=== PATIENT | female | born 1970 | race Caucasian/White ===

== ENCOUNTER 2021-09-10 16:17 | Emergency (ER) | payer OTHER, SELFPAY ==
--- NOTE | ~2021-09-10 | XR_ITS ---
EXAMINATION: XR CHEST CLINICAL INFORMATION: COVID. Question pneumonia. COMPARISON: None TECHNIQUE: Frontal view of the chest was obtained. FINDINGS: Airspace opacity in the left midlung consistent with pneumonia. Low lung volumes. There may be a right pleural effusion. No pneumothorax. Normal heart size. XR/XR chest 1V IMPRESSION: Left midlung airspace opacity consistent with pneumonia.
[2021-09-10 17:41] VITALS: BP 104/66; PULSE 96; RESP 20; TEMP 36.9; O2SAT 94; BMI 37.1
--- NOTE | 2021-09-10 21:53 | ED.GENADULT ---
HPI - General Adult General Chief complaint: Fever Stated complaint: +covid on wed, high fever Time Seen by Provider: 09/10/21 16:33 Source: patient Mode of arrival: ambulatory Limitations: no limitations History of Present Illness HPI narrative: Patient presents to ED for positive COVID, fever, chills, chest pain and back pain only when she coughs. Patient denies any pleuritic chest chest pain or shortness of breath on exertion. Patient denies any swelling of legs, calf pain, coughing up blood, or passing out. Patient states she has been positive for COVID for the past 4 days. Patient states taking benzonatate for cough not helping. Related Data Previous Rx's Medication Instructions Recorded amoxicillin 875 mg-potassium 1 tab PO Q12H 7 Days #14 tab 09/10/21 clavulanate 125 mg tablet (Augmentin) azithromycin 250 mg tablet See Rx Instructions .ROUTE 09/10/21 .COMPLEX #6 tab dexamethasone 6 mg tablet 6 mg PO DAILY 10 Days #10 tab 09/10/21 (Decadron) hydrocodone-homatropine 5 mg-1.5 5 ml PO Q6H PRN 3 Days #60 ml 09/10/21 mg/5 mL oral syrup Allergies Allergy/AdvReac Type Severity Reaction Status Date / Time bee pollen [bee stings] AdvReac Anaphylaxis Verified 09/10/21 17:44 Review of Systems Review of Systems: Yes all other systems are reviewed and are negative Constitutional: Constitutional: Reports as per HPI, Reports no additional constitutional complaints, Reports body ache(s), Reports chills, Reports fever(s) and Denies snoring Eyes: Eyes: Reports as per HPI and Reports no additional eye complaints ENT: Reports system reviewed and no additional complaints, except as documented and Reports as per HPI Cardiovascular: Cardiovascular: Reports as per HPI, Reports no additional cardiovascular complaints, Denies dyspnea and Denies dyspnea on exertion Respiratory: Respiratory: Reports cough, Denies hemoptysis, Denies excessive phlegm production, Denies pain on inspiration, Reports pain with cough, Denies dyspnea, Denies dyspnea on exertion, Denies snoring, Denies stridor and Denies wheezing Genitourinary: Genitourinary: Reports no additional female genitourinary complaints and Reports as per HPI Musculoskeletal: Musculoskeletal: Reports no additional musculoskeletal complaints Neurologic: Reports system reviewed and no additional complaints, except as documented and Reports as per HPI Psychiatric: Psychiatric: Reports no additional psychiatric complaints and Reports as per HPI Allergic/Immunologic: Allergic/Immunologic: Denies wheezing PMFSH Social History Social History Advance Directives: No Advance Directives Information Provided: No Physical Exam Vital Signs: Vital Signs: Last Vital Signs Temp 98.5 F 09/10/21 17:41 Pulse 96 09/10/21 17:41 Resp 20 09/10/21 17:41 BP 104/66 09/10/21 17:41 Pulse Ox 94 09/10/21 17:41 Body Mass Index 37.1 Const: General: cooperative, healthy appearing, comfortable, no acute distress, well developed, alert, awake and Physically active Orientation/consciousness: patient oriented x3 HENMT: Head: Yes normal to inspection, Yes No palpable skull fracture present, Yes normocephalic, Yes atraumatic and No abrasion Eyes: General: appearance normal, both eyes and all related structures Neck: Neck: Yes normal visual inspection, Yes full ROM, Yes no lymphadenopathy, Yes no meningeal signs, Yes trachea midline, Yes supple and No tender Chest: Chest palpation & inspection: normal inspection of the chest and normal palpation of entire chest wall Resp: Effort & Inspection: normal respiratory effort and able to speak in complete sentences Auscultation: clear to auscultation bilaterally Cardio: Jugular venous distension: no JVD Heart sounds: S1 normal heart sound present and S2 normal heart sound present GI: Inspection: Yes normal to inspection and No abdominal wall ecchymosis Palpation (GI): Soft to palpation, not firm, nontender, no guarding and not rigid : General: No CVA tenderness and Yes no CVA tenderness Back/Spine/Pelvis: Back: no CVA tenderness, No CVA tenderness and No back tenderness Skin: General skin exam: no rashes or lesions noted and elasticity normal Neuro: General: patient oriented x3, gait normal, no meningeal signs and CN's II-XI intact bilaterally Cranial nerves: Yes CN's II-XII intact bilaterally Extrem: Other: Lower extremities negative for swelling, pitting edema, or calf tenderness Psych: Appearance: grossly normal, well kempt and not disheveled Course Course Course Narrative: Was sent for x-ray. Reevaluation(s) Reevaluation #1: X-ray showed left-sided pneumonia. O2 sat saturation on ambulation 95%. Not suspecting PE. No need for labs. Patient will be discharged with antibiotics and Decadron. Patient educated on monoclonal body and given information to call [facility] monoclonal antibody clinic tomorrow to see if she fits criteria to receive treatment. Time: 10:00 Medical Decision Making MDM Narrative Medical decision making narrative: COVID pneumonia Discharge Plan Discharge Clinical Impression: 2019 novel coronavirus-infected pneumonia (NCIP) Patient Disposition: Home, Self-Care Instructions: Viral Pneumonia (ED), COVID-19 (Coronavirus Disease 2019) (ED) Additional Instructions: Chest x-ray shows left-sided pneumonia. You will be discharged with antibiotic and Decadron. You can call [facility] monoclonal antibody clinic to see if she would qualify for treatment. Please call tomorrow morning. Number is [phone]. Please follow up with PCP. Prescriptions: New dexamethasone [Decadron] 6 mg tablet 6 mg PO DAILY 10 Days Qty: 10 RF: 0 amoxicillin-pot clavulanate [Augmentin] 875-125 mg tablet 1 tab PO Q12H 7 Days Qty: 14 RF: 0 azithromycin 250 mg tablet See Rx Instructions .ROUTE .COMPLEX Qty: 6 RF: 0 hydrocodone-homatropine 5-1.5 mg/5 mL syrup 5 ml PO Q6H PRN (Reason: cough) 3 Days Qty: 60 RF: 0 Stand Alone Forms: Work/School Release Interventions: ED Discharge Assessment Last Done: 09/10/21 22:50 Discharge Date/Time: 09/10/21 22:51 Print Language: Portuguese
== END 2021-09-10 22:51 | disposition home or self-care (01) ==
PROVIDERS: Emergency Provider Internal Medicine; PCP Nurse Practitioner Family
DX: U07.1 COVID-19 (principal); J12.82 Pneumonia due to coronavirus disease 2019; R50.9 Fever, unspecified; M54.50 Low back pain, unspecified; Z79.899 Other long term (current) drug therapy
CPT/HCPCS: 71045; 99283

== ENCOUNTER 2023-12-08 15:01 | Outpatient (AMB) | payer OTHER, SELFPAY ==
--- NOTE | 2023-12-08 15:08 | MHC.OFFWIV ---
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) Intake Note: pt is here today for swollen tonsils started Patient Tobacco Use Status: Never used Tobacco Allergies bee pollen [bee stings] Adverse Reaction (Verified 12/08/23 15:08) Anaphylaxis Do you need a note to return to daycare/school/sports/work: No HPI HPI Comments History of Present Illness Details Patient presents to the walk-in stay with complaints of sore throat for last 4 days Denies known sick contacts Pain with swallowing and reports swollen tonsils Tolerating p.o., denies nausea, vomiting Denies headaches, fevers, chest pain, syncope, dizziness, weakness or difficulty managing secretions PFSH Social History Patient Tobacco Use Status: Never used Tobacco Review of Systems Const All systems reviewed & are unremarkable except as noted in HPI and below Physical Exam Vital Signs: Last Vital Signs Temp 97.8 F 12/08/23 15:11 Pulse 71 12/08/23 15:11 BP 150/100 H 12/08/23 15:11 Pulse Ox 98 12/08/23 15:11 Oxygen Delivery Method Room Air 12/08/23 15:11 BMI result Body Mass Index 37.9 General: awake, alert, oriented. Answers questions appropriately. Fully engaged in examination. Skin: warm, dry, intact HEENT: TMs intact bilaterally, no redness. Posterior pharynx erythematous, uvula erythematous. Moist oral mucosa. Sclera without icterus or injection. Cardiac: External chest normal in appearance. RRR Respiratory: LSCTAB. Abdomen: without gross distension. Neurological: Oriented to person, place, time and situation. Thought process intact. Psychiatric: Appropriate mood and affect. Good judgment and insight. Results AMB Rapid Strep AMB Rapid Strep Negative Last Edit by Samy Pena CMA on 12/08/23 15:30 Results Reviewed Results Reviewed: Laboratory Last Values Strep Scn Rapid Clinic Positive 12/08/23 15:29 rapid strep positive Assessment & Plan Assessment & Plan (1) Strep pharyngitis: Code(s): J02.0 - Streptococcal pharyngitis Plan Patient presented to the walk-in today with complaints of sore throat Rapid strep positive Amoxicillin 500 mg twice daily for 10 days Rest, drink plenty of fluids. Tylenol or Motrin as needed Discussed preventative measures including no sharing of drinks, utensils or kissing. Dispose of tooth brush every 3 days and at completion of the antibiotics. All questions and concerns were answered, patient agrees with plan Follow with primary care or return to the clinic for any new or worsening symptoms Orders: Orders AMB Rapid Strep Screen Today Z13.9 - Encounter for screening, unspecified Medications: New amoxicillin 500 mg PO BID 20 caps 0RF 10 days Coding Level of Care Code New Pt Level 4 (63864) Diagnoses Strep pharyngitis J02.0
[2023-12-08 15:11] VITALS: BP 150/100; PULSE 71; TEMP 36.6; O2SAT 98; BMI 37.9
== END 2023-12-08 15:35 | disposition home or self-care (01) ==
PROVIDERS: PCP Nurse Practitioner Family; Visit Provider Registered Nurse Emergency
DX: J02.9 Acute pharyngitis, unspecified (principal)
CPT/HCPCS: 87880; 99203